=== PATIENT | female | born 1980 | race Asian ===

== ENCOUNTER 2020-06-08 19:23 | Emergency (ER) | payer MEDICAID ==
[~2020-06-08] VITALS: Ht 157.5 cm; Wt 58.1 kg
[2020-06-08 19:30] VITALS: BP 109/68
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
--- NOTE | 2020-06-08 19:50 | NUR ---
ED Nurse Note: US at bedside.
--- NOTE | 2020-06-08 20:07 | Diagnostic Imaging Report ---
EXAM: XR Chest, 1 View CLINICAL HISTORY: PAIN TECHNIQUE: Frontal view of the chest. COMPARISON: No relevant prior studies available. FINDINGS: The cardiac and mediastinal silhouettes are unremarkable. Rounded density right lung base may reflect nipple shadow. Recommend repeat imaging with upright PA and lateral views of the chest with nipple markers. Negative for focal consolidation, pneumothorax or pleural fluid collections.
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
[2020-06-08] MEDS ORDERED: TYLENOL EXTRA500 MG ORAL (20:33)
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
[2020-06-08 20:47] VITALS: BP 109/68
--- NOTE | 2020-06-08 20:47 | NUR ---
ER DISCHARGE NOTE: Patient is cleared to be discharged per ERMD, pt is aox4, on room air, with stable vital signs. pt was given dc and prescription instructions, pt was able to verbalize understanding, pt id band removed. pt is able to ambulate with steady gait. pt took all belongings. accompanied by .
== END 2020-06-08 20:47 | disposition home or self-care (01) ==
LOC: EMR 19:35
DX: O26.93 Pregnancy related conditions, unspecified, third trimester (principal); S30.1XXA Contusion of abdominal wall, initial encounter; S20.219A Contusion of unspecified front wall of thorax, initial encounter; O99.89 Other specified diseases and conditions complicating pregnancy, childbirth and the puerperium; N13.30 Unspecified hydronephrosis; V43.62XA Car passenger injured in collision with other type car in traffic accident, initial encounter; Y92.410 Unspecified street and highway as the place of occurrence of the external cause; Z3A.30 30 weeks gestation of pregnancy
CPT/HCPCS: 71045; 76604; 76805; Z7502; 76817; 99284